=== PATIENT | female | born 1975 | race Caucasian/White ===

== ENCOUNTER 2019-08-16 16:48 | Emergency (ER) | payer OTHER ==
[~2019-08-16] VITALS: Ht 160 cm; Wt 68.5 kg
[2019-08-16 16:52] VITALS: Ht 160 cm; Wt 68.5 kg
[2019-08-16 18:17] LABS: BASOPHIL % 0.4 % (0-2); PLATELET COUNT 291 x10^3mcL (130-400)
[2019-08-16 18:25] LABS: RED CELL DISTRIBUTION WIDTH 14.6 % (11.5-14.5)
[2019-08-16 19:13] LABS: ERYTHROCYTE SED RATE 17 mm/hr (0-20)
[2019-08-16 21:10] VITALS: BP 112/79
== END 2019-08-16 21:10 | disposition home or self-care (01) ==
LOC: ED 16:48
PROVIDERS: Emergency Medicine
DX: M26.69 Other specified disorders of temporomandibular joint (principal); R51 Headache; Z88.6 Allergy status to analgesic agent; Z88.5 Allergy status to narcotic agent; Z88.8 Allergy status to other drugs, medicaments and biological substances
CPT/HCPCS: 36415; J1885; J8597